=== PATIENT | female | born 1990 | race Caucasian/White ===

== ENCOUNTER 2017-12-03 13:24 | Observation (INO) | payer OTHER ==
[~2017-12-03] VITALS: Ht 157.5 cm; Wt 54.8 kg
[2017-12-03 14:03] LABS: MEAN CORPUSCULAR HGB CONC 33.9 g/dL (32.4-35.8); MEAN CORPUSCULAR VOLUME 91.5 fL (80-100); PLATELET COUNT 304 x10^3/uL (130-400); RED BLOOD COUNT 4.08 x10^6/uL (3.82-5.3); RED CELL DISTRIBUTION WIDTH 11.9 % (9.6-15.2)
[2017-12-03 14:11] LABS: INTERNATIONAL NORMALIZED RATIO 1.04 (0.93-1.1); PROTHROMBIN TIME 10.7 Seconds (9.6-11.5)
[2017-12-03 14:13] LABS: ANION GAP 10 mmol/L (5-15); CALCIUM 8.5 mg/dL (8.5-10.1); CHLORIDE 103 mmol/L (98-107); CREATININE 0.96 mg/dL (0.55-1.02)
[2017-12-03] MEDS ORDERED: MORPHINE SULFATE 4 MG/ML, 1ML IVPush PRN ×2 (14:30→17:00)
[2017-12-03] MEDS ORDERED: ONDANSETRON 2MG/ML, 2ML IVPush ONE (14:30)
[2017-12-03] MEDS ORDERED: ONDANSETRON 2MG/ML, 2ML ONE ×2 (14:35→16:04)
[2017-12-03] MEDS ORDERED: MORPHINE SULFATE 4 MG/ML, 1ML ONE (14:35)
[2017-12-03 14:50] VITALS: BP 105/67
[2017-12-03 14:52] LABS: BASOPHILS # (AUTO) 0.04 x10^3/uL (0-0.1); BASOPHILS % (AUTO) 0 % (0-1); EOSINOPHILS # (AUTO) 0.15 x10^3/uL (0-0.4); EOSINOPHILS % (AUTO) 1 % (1-7); LYMPHOCYTES % (AUTO) 8 % (22-44); MD SCAN; MONOCYTES # (AUTO) 0.38 x10^3/uL (0.2-0.8); MONOCYTES % (AUTO) 2 % (2-9); NEUTROPHILS % (AUTO) 89 % (42-75)
[2017-12-03 15:13] VITALS: BP 102/65
[2017-12-03 15:29] VITALS: BP_SYST 106; BP_SYST 110; BP_DIAS 65; BP_DIAS 72
[2017-12-03] MEDS ORDERED: DOXYCYCLINE 100 MG in DEXTROSE 5% 250 ML IV ONE (15:35)
[2017-12-03] MEDS ORDERED: OXYTOCIN 10 UNITS/ML, 1ML ONE (15:44)
[2017-12-03] MEDS ORDERED: METHYLERGONOVINE 0.2 MG/ML IM ONE (15:44)
[2017-12-03] MEDS ORDERED: SILVER NITRATE STICK TP ONE (15:44)
[2017-12-03] MEDS ORDERED: MISOPROSTOL 200 MCG TABLET ONE (15:44)
[2017-12-03 15:45] VITALS: BP 104/61
[2017-12-03] MEDS ORDERED: FENTANYL PF 100 MCG/2ML ONE (15:48)
[2017-12-03] MEDS ORDERED: MIDAZOLAM 1 MG/ML, 2ML ONE (15:48)
[2017-12-03] MEDS ORDERED: DEXAMETHASONE 4 MG/ML, 1ML ONE (16:04)
[2017-12-03] MEDS ORDERED: EPHEDRINE 50 MG/ML, 1ML ONE (16:04)
[2017-12-03] MEDS ORDERED: PROPOFOL 10 MG/ML, 20ML ONE (16:04)
[2017-12-03] MEDS ORDERED: ONDANSETRON 2MG/ML, 2ML IV PRN ×2 (17:00→19:00)
[2017-12-03] MEDS ORDERED: MEPERIDINE/PF 25MG/0.5ML IVPush PRN (17:00)
[2017-12-03] MEDS ORDERED: ALBUTEROL SULFATE 2.5 MG/3 ML NPPB PRN (17:00)
[2017-12-03] MEDS ORDERED: FENTANYL PF 100 MCG/2ML IV PRN ×2 (17:00→19:00)
[2017-12-03] MEDS ORDERED: LORazepam 2 MG/ML, 1ML IVPush PRN (17:00)
[2017-12-03] MEDS ORDERED: PROMETHAZINE 25 MG/ML, 1ML IV PRN (17:00)
[2017-12-03] MEDS ORDERED: ONDANSETRON ODT 8 MG PO PRN (17:00)
[2017-12-03] MEDS ORDERED: LABETALOL 5MG/ML, 20ML IV PRN (17:00)
[2017-12-03] MEDS ORDERED: MIDAZOLAM 1 MG/ML, 2ML IV PRN (17:00)
[2017-12-03] MEDS ORDERED: HYDROmorphone 1 MG/ML, 1ML IV PRN (17:00)
[2017-12-03] MEDS ORDERED: hydrALAzine 20 MG/ML, 1ML IV PRN (17:00)
[2017-12-03] MEDS ORDERED: HALOPERIDOL 5 MG/ML IV PRN (17:00)
[2017-12-03] MEDS ORDERED: OXYcodone 5 MG/5 ML ORAL.SOL UDC PO PRN (17:00)
[2017-12-03] MEDS ORDERED: EPHEDRINE 50 MG/ML, 1ML IVPush PRN (17:00)
[2017-12-03] MEDS ORDERED: PROMETHAZINE 12.5 MG SUPP PR PRN (17:00)
[2017-12-03] MEDS ORDERED: MEPERIDINE/PF 50 MG/ML ONE (17:00)
[2017-12-03] MEDS ORDERED: OXYcodone 5 MG/5 ML ORAL.SOL UDC ONE (17:01)
[2017-12-03 17:13] LABS: BASOPHILS % (AUTO) 0 % (0-1); EOSINOPHILS % (AUTO) 0 % (1-7); LYMPHOCYTES # (AUTO) 0.76 x10^3/uL (1-3.4); LYMPHOCYTES % (AUTO) 6 % (22-44); MD SCAN; MEAN CORPUSCULAR HEMOGLOBIN 31.5 pg (27.0-34.8); MEAN CORPUSCULAR HGB CONC 34.3 g/dL (32.4-35.8); MEAN PLATELET VOLUME 8.9 fL (7.4-10.4); MONOCYTES # (AUTO) 0.41 x10^3/uL (0.2-0.8); MONOCYTES % (AUTO) 3 % (2-9); NEUTROPHILS # (AUTO) 12.01 x10^3/uL (1.8-6.8); NEUTROPHILS % (AUTO) 91 % (42-75); PLATELET COUNT 181 x10^3/uL (130-400); RED BLOOD COUNT 3.74 x10^6/uL (3.82-5.3); RED CELL DISTRIBUTION WIDTH 12.7 % (9.6-15.2)
[2017-12-03 19:00] VITALS: BP 110/78
[2017-12-03] MEDS ORDERED: HYDROcodone/APAP 7.5-325MG/15ML UDC PO PRN (19:00)
[2017-12-03] MEDS ORDERED: PROMETHAZINE 25 MG SUPP PR ONE (19:00)
[2017-12-03] MEDS ORDERED: KETOROLAC 30 MG/1 ML IV PRN (19:00)
[2017-12-03 20:29] LABS: BASOPHILS % (AUTO) 0 % (0-1); EOSINOPHILS % (AUTO) 0 % (1-7); LYMPHOCYTES # (AUTO) 0.75 x10^3/uL (1-3.4); LYMPHOCYTES % (AUTO) 6 % (22-44); MD NO; MEAN CORPUSCULAR HEMOGLOBIN 31.8 pg (27.0-34.8); MEAN CORPUSCULAR HGB CONC 34.5 g/dL (32.4-35.8); MEAN CORPUSCULAR VOLUME 91.9 fL (80-100); MEAN PLATELET VOLUME 8.9 fL (7.4-10.4); MONOCYTES % (AUTO) 1 % (2-9); NEUTROPHILS # (AUTO) 11.24 x10^3/uL (1.8-6.8); NEUTROPHILS % (AUTO) 93 % (42-75); PLATELET COUNT 174 x10^3/uL (130-400); RED BLOOD COUNT 3.82 x10^6/uL (3.82-5.3); RED CELL DISTRIBUTION WIDTH 12.4 % (9.6-15.2)
[2017-12-03] MEDS ORDERED: IBUP-1222 PO (21:26)
== END 2017-12-03 18:01 | disposition home or self-care (01) ==
LOC: OR 15:36 → 4NOR 15:37 → OR 17:53
PROVIDERS: ADMIT Obstetrics & Gynecology; ATTEND Obstetrics & Gynecology
DX: O03.1 Delayed or excessive hemorrhage following incomplete spontaneous abortion (principal); O03.31 Shock following incomplete spontaneous abortion; O24.911 Unspecified diabetes mellitus in pregnancy, first trimester; E06.3 Autoimmune thyroiditis; Z3A.11 11 weeks gestation of pregnancy; Z80.51 Family history of malignant neoplasm of kidney; Z85.07 Personal history of malignant neoplasm of pancreas
CPT/HCPCS: 36415; 36430; 59812; 76830; 80048; 84702; 85025; 85610; 85730; 86850; 86900; 86923; 88305; 93005; 96374; 96375; 99285; G0378; J1100; J2175; J2210; J2250; J2405; J2590; J2704; J3010; J7060; P9016

== ENCOUNTER → 2020-04-06 | Outpatient (CLI) | payer OTHER, BC ==
[~2020-04-06] MED LIST: IBUP-1222 PO; IBUP-1902 PO; LEVO100T PO
== END | disposition home or self-care (01) ==
LOC: STAR 09:03
PROVIDERS: ATTEND Otolaryngology
DX: Z20.822 Contact with and (suspected) exposure to COVID-19 (principal); J34.2 Deviated nasal septum; J32.4 Chronic pansinusitis; J34.3 Hypertrophy of nasal turbinates
CPT/HCPCS: 87635

== ENCOUNTER 2020-04-12 05:50 | Day surgery (SDC) | payer OTHER, BC ==
[2020-04-06 09:55] VITALS: BP 107/72
[~2020-04-12] VITALS: Ht 157.5 cm; Wt 55.0 kg
[2020-04-12] MEDS ORDERED: LACTATED RINGERS 1,000 ML IV SCH (06:30)
[2020-04-12] MEDS ORDERED: CHLORHEXIDINE 15 ML UDC MM ONE (06:30)
[2020-04-12 06:31] VITALS: BP 107/72
[2020-04-12] MEDS ORDERED: PROPOFOL 50 ML ONE (07:07)
[2020-04-12] MEDS ORDERED: FENTANYL PF 250 MCG/5ML ONE (07:08)
[2020-04-12] MEDS ORDERED: MIDAZOLAM 1 MG/ML, 2ML ONE (07:08)
[2020-04-12] MEDS ORDERED: EPINEPHRINE 1 MG/ML, 1ML ONE (07:09)
[2020-04-12] MEDS ORDERED: NEOSPORIN OINT, 15GM ONE (07:09)
[2020-04-12] MEDS ORDERED: OXYMETAZOLINE NASAL SPRAY 0.05%,30ML ONE (07:09)
[2020-04-12] MEDS ORDERED: LIDOCAINE/PF 1%, 30ML ONE (07:09)
[2020-04-12 07:38] LABS: HCG UR SG 1.026 (1.003-1.030)
[2020-04-12] MEDS ORDERED: OXYMETAZOLINE NASAL SPRAY 0.05%,30ML NAS ONE (07:40)
[2020-04-12] MEDS ORDERED: DEXAMETHASONE 4 MG/ML, 1ML ONE (07:41)
[2020-04-12] MEDS ORDERED: ROCURONIUM 10 MG/ML,10ML ONE (07:41)
[2020-04-12] MEDS ORDERED: ONDANSETRON 2MG/ML, 2ML ONE (07:41)
[2020-04-12] MEDS ORDERED: SUCCINYLCHOLINE 20 MG/ML, 10ML ONE (07:41)
[2020-04-12] MEDS ORDERED: NEOSPORIN OINT, 15GM TP ONE (07:53)
[2020-04-12] MEDS ORDERED: LIDOCAINE 1%-EPI 1:100K, 30ML INFIL ONE (07:53)
[2020-04-12] MEDS ORDERED: CLINDAMYCIN 150 MG/ML, 6ML ONE (07:54)
[2020-04-12] MEDS ORDERED: DIAZEPAM 5 MG/ML, 2ML IVPush PRN (08:00)
[2020-04-12] MEDS ORDERED: ONDANSETRON 2MG/ML, 2ML IVPush PRN (08:00)
[2020-04-12] MEDS ORDERED: MEPERIDINE/PF 25MG/0.5ML IVPush PRN (08:00)
[2020-04-12] MEDS ORDERED: LABETALOL 5MG/ML, 20ML IV PRN (08:00)
[2020-04-12] MEDS ORDERED: EPHEDRINE 50 MG/ML, 1ML IM PRN (08:00)
[2020-04-12] MEDS ORDERED: DIPHENHYDRAMINE 50 MG/ML, 1ML IVPush PRN (08:00)
[2020-04-12] MEDS ORDERED: EPHEDRINE 50 MG/ML, 1ML IVPush PRN (08:00)
[2020-04-12] MEDS ORDERED: HYDROmorphone 1 MG/ML, 1ML INJ IVPush PRN (08:00)
[2020-04-12] MEDS ORDERED: PROMETHAZINE 25 MG/ML, 1ML IVPush PRN (08:00)
[2020-04-12] MEDS ORDERED: ACETAMINOPHEN 325 MG TABLET PO PRN (08:00)
[2020-04-12] MEDS: OXYcodone 5 MG/5 ML ORAL.SOL UDC PO PRN ×2 (09:00→09:40)
[2020-04-12] MEDS ORDERED: OXYcodone 5 MG/5 ML ORAL.SOL UDC ONE ×2 (09:10→09:28)
[2020-04-12] MEDS ORDERED: ACETAMINOPHEN 650 MG/20.3 ML UDC ONE (09:10)
[2020-04-12] MEDS ORDERED: FENTANYL PF 100 MCG/2ML ONE (09:26)
[2020-04-12] MEDS: FENTANYL PF 100 MCG/2ML IV PRN ×2 (09:30→09:49)
== END 2020-04-12 11:25 | disposition home or self-care (01) ==
LOC: OUT 05:50
PROVIDERS: ATTEND Otolaryngology
DX: J34.2 Deviated nasal septum (principal); J34.3 Hypertrophy of nasal turbinates; J32.0 Chronic maxillary sinusitis; J34.89 Other specified disorders of nose and nasal sinuses; E03.9 Hypothyroidism, unspecified; Z79.890 Hormone replacement therapy; Z88.0 Allergy status to penicillin; Z88.2 Allergy status to sulfonamides
CPT/HCPCS: 30140; 30520; 31256; 81025; 88304; 88311; J0171; J0330; J1100; J2250; J2405; J2704; J3010; J7120